=== PATIENT | male | born 1935 | race Caucasian/White ===

== ENCOUNTER 2017-02-20 13:31 | Emergency (ER) | payer MEDICARE, BC ==
--- NOTE | 2017-02-20 14:10 | Emergency Department Record ---
History of Present Illness - General Chief Complaint: Fall Injury Stated Complaint: FALL INJURY, KNEE PAIN Time Seen by Provider: 02/20/17 14:04 Source: Patient, Family Mode of Arrival: Ambulatory - History of Present Illness Initial Comments: The patient was carrying a lawn chair when he fell forward onto his left knee around 11:30 today. It is now swollen and tender mostly over the patella. He takes blood thinners. He denies injuring his other knee or any other area on his body. He walked in here with a bit of a limp. He was given 1 gm tylenol about an hour prior to arriving here. Complaint: Fall Onset/Timin -: Hour(s) Fall From: Standing When Fall Occurred: Just prior to arrival Fall Witnessed: Yes, by family Place Fall Occurred: Home Loss of Consciousness: None Prolonged Down Time?: No Symptoms Prior to Fall: None Associated Symptoms: Denies - Martir Coma Scale Eye Response: (4) Open spontaneously Motor Response: (6) Obeys commands Verbal Response: (5) Oriented Martir Total: 15 - Related Data Home Medications Medication Instructions Recorded Confirmed Last Taken Azelastine HCl [Astelin] 0 mcg NS DAILY 05/27/14 02/20/17 02/20/17 Cetirizine HCl [Zyrtec] 10 mg PO DAILY 05/27/14 02/20/17 02/20/17 Citalopram Hydrobromide 20 mg PO BID 05/27/14 02/20/17 02/20/17 [Citalopram HBr] Dofetilide [Tikosyn] 125 mcg PO BID 05/27/14 02/20/17 02/20/17 Doxazosin Mesylate [Cardura] 4 mg PO DAILY 05/27/14 02/20/17 02/20/17 Furosemide [Furosemide] 40 mg PO DAILY 05/27/14 02/20/17 02/20/17 Ipratropium [place] [Atrovent] 15 ml NS DAILY 05/27/14 02/20/17 02/20/17 Meloxicam [Mobic] 7.5 mg PO DAILY 05/27/14 02/20/17 02/20/17 Omeprazole [Prilosec] 20 mg PO DAILY 05/27/14 02/20/17 02/20/17 Potassium Chloride [Klor-Con] 10 mg PO DAILY 05/27/14 02/20/17 02/20/17 Simvastatin [Zocor 10Mg] 10 mg PO QHS 05/27/14 02/20/17 02/19/17 Trazodone HCl 150 mg PO DAILY 05/27/14 02/20/17 02/20/17 Warfarin Sodium [Coumadin] 5 mg PO ASDIR 05/27/14 02/20/17 02/20/17 Zolpidem Tartrate [Zolpidem 10 mg PO DAILY 05/27/14 02/20/17 02/19/17 Tartrate] Acyclovir [Zovirax] 400 mg PO DAILY 05/28/14 02/20/17 02/20/17 Montelukast Sodium [Singulair] 10 mg PO QHS 05/28/14 02/20/17 02/19/17 Alprazolam [Alprazolam] 3 tab PO QHS 11/23/14 02/20/17 02/19/17 Previous Rx's Medication Instructions Recorded Carvedilol [Coreg] 3.125 mg PO DAILY #30 tablet 11/24/14 Lisinopril [Zestril] 10 mg PO DAILY #30 tab 11/24/14 Allergies Allergy/AdvReac Type Severity Reaction Status Date / Time Sulfa (Sulfonamide AdvReac NAUSEA Verified 02/22/15 09:53 Antibiotics) Travel Screening - Travel/Exposure Within Last 30 Days Have you traveled within the last 30 days?: No - Travel/Exposure Within Last Year Have you traveled outside the [place] in the last year?: No - Additonal Travel Details Have you been exposed to anyone with a communicable illness?: No - Travel Symptoms Symptom Screening: None Review of Systems Reviewed: No additional complaints except as noted below Constitutional: Reports: As per HPI. Denies: Chills, Fever, Malaise, Night sweats, Weakness, Weight change Eyes: Reports: As per HPI. Denies: Eye discharge, Eye pain, Photophobia, Vision change ENT: Reports: As per HPI. Denies: Congestion, Dental pain, Ear pain, Epistaxis , Hearing loss, Throat pain Respiratory: Reports: As per HPI. Denies: Cough, Dyspnea, Hemoptysis, Stridor, Wheezes Cardiovascular: Reports: As per HPI. Denies: Arrhythmia, Chest pain, Dyspnea on exertion, Edema, Murmurs, Orthopnea, Palpitations, Paroxysmal nocturnal dyspnea, Rheumatic Fever, Syncope Endocrine: Reports: As per HPI. Denies: Fatigue, Heat or cold intolerance, Polydipsia, Polyuria Gastrointestinal: Reports: As per HPI. Denies: Abdominal pain, Constipation, Diarrhea, Hematemesis, Hematochezia, Melena, Nausea, Vomiting Genitourinary: Reports: As per HPI. Denies: Dysuria, Frequency, Hematuria, Incontinence, Retention, Testicular pain, Testicular mass, Urgency Musculoskeletal: Reports: As per HPI. Denies: Arthralgia, Back pain, Gout, Joint swelling, Myalgia, Neck pain Skin: Reports: As per HPI. Denies: Bruising, Change in color, Change in hair/ nails, Lesions, Pruritus, Rash Neurological: Reports: As per HPI. Denies: Abnormal gait, Confusion, Headache, Numbness, Paresthesias, Seizure, Tingling, Tremors, Vertigo, Weakness Psychiatric: Reports: As per HPI. Denies: Anxiety, Auditory hallucinations, Depression, Homicidal thoughts, Suicidal thoughts, Visual hallucinations Hematological/Lymphatic: Reports: As per HPI. Denies: Anemia, Blood Clots, Easy bleeding, Easy bruising, Swollen glands Past Medical History - SOCIAL HISTORY Smoking Status: Never smoker Alcohol Use: None Drug Use: None - RESPIRATORY Hx Respiratory Disorders: Yes Hx Asthma: Yes Hx Bronchitis: Yes Hx Pneumonia: Yes - CARDIOVASCULAR Hx Cardio Disorders: Yes Hx Chest Pain: Yes Hx CHF: Yes Hx Heart Attack: No Hx Irregular Heartbeat: Yes (a fib, has pacemaker) Hx Pacemaker/Defib: Yes - NEURO Hx Neuro Disorders: No - GI Hx GI Disorders: Yes Hx Reflux: Yes - Hx Genitourinary Disorders: Yes Hx Prostate Problems: Yes - ENDOCRINE Hx Endocrine Disorders: No - MUSCULOSKELETAL Hx Musculoskeletal Disorders: Yes Hx Arthritis: Yes Hx Back Injury: Yes - PSYCH Hx Psych Problems: Yes Hx Anxiety: Yes Hx Depression: Yes - HEMATOLOGY/ONCOLOGY Hx Hematology/Oncology Disorders: Yes Hx Cancer: Yes (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 negative: External canal tenderness Nasal Exam: Normal inspection. negative: Discharge, Sinus tenderness Mouth exam: Normal external inspection, Tongue normal Teeth exam: Normal inspection. negative: Dental caries Throat exam: Normal inspection. negative: Tonsillar erythema, Tonsillar exudate - Neck Neck exam: Normal inspection, Full ROM. negative: Tenderness - Respiratory Respiratory exam: Normal lung sounds bilaterally. negative: Respiratory distress - Cardiovascular Cardiovascular Exam: Regular rate, Normal rhythm, Normal heart sounds - GI/Abdominal GI/Abdominal exam: Soft, Normal bowel sounds. negative: Tenderness - Rectal Rectal exam: Deferred - exam: Deferred - Extremities Extremities exam: Normal inspection, Full ROM, Normal capillary refill, Pedal edema, Tenderness (tender over right patella with swelling and ecchymosis diffusely; decreased ROM due to swelling and pain presumably.) - Back Back exam: Reports: Normal inspection, Full ROM. Denies: Muscle spasm, Rash noted, Tenderness - Neurological Neurological exam: Alert, Normal gait, Oriented X3, Reflexes normal - Psychiatric Psychiatric exam: Normal affect, Normal mood - Skin Skin exam: Dry, Intact, Normal color, Warm Course Vital Signs 02/20/17 13:35 Temperature 97.8 F Pulse Rate 60 Respiratory 16 Rate Blood Pressure 160/74 Pulse Ox 96 - Reevaluation(s) Reevaluation #1: Patient states he is going to [place] February 26- and will recheck with Dr. Garnett after his return. 02/20/17 15:15 Medical Decision Making - Management Options MDM Management: No Additional Work-up Planned - Data Complexity MDM Data: X-Ray Ordered and/or Reviewed (Right knee Xray: Moderate pre-patellar soft tissue swelling; no fracture; chronic changes; S/P total knee replacement. Per radiologist.) Disposition Disposition: Discharge Clinical Impression: Contusion of right patella Qualifiers: Encounter type: initial encounter Qualified Code(s): S80.01XA - Contusion of right knee, initial encounter Disposition: Home, Self-Care Condition: (1) Good Instructions: Fall Prevention for Older Adults (ED), Knee Pain (ED) Additional Instructions: Magan wrap for support and comfort as needed. Ice, elevate first 48-72 hours. Follow up with Dr. Garnett as scheduled through his traveling phlebotomist. Decrease ambulation until pain and swelling improved. Tylenol as needed as directed for pain. Forms: Patient Portal Access
== END 2017-02-20 15:33 | disposition home or self-care (01) ==
LOC: ER 13:31
DX: S80.01XA Contusion of right knee, initial encounter (principal); Z96.653 Presence of artificial knee joint, bilateral; W01.0XXA Fall on same level from slipping, tripping and stumbling without subsequent striking against object, initial encounter; Y92.009 Unspecified place in unspecified non-institutional (private) residence as the place of occurrence of the external cause; I48.91 Unspecified atrial fibrillation; I50.9 Heart failure, unspecified; Z79.01 Long term (current) use of anticoagulants; I27.2 Other secondary pulmonary hypertension; R06.02 Shortness of breath
CPT/HCPCS: 84443; 85651; 86038; 86430; 99283